=== PATIENT | male | born 1985 ===

== ENCOUNTER 2017-10-19 00:40 | Emergency (ER) | payer BC ==
[2017-10-19 00:46] VITALS: BMI 31.2
--- NOTE | 2017-10-19 01:00 | ED PDOC ---
Arrival/HPI - General Chief Complaint: Palpitations Time Seen by Provider: 10/19/17 00:55 Historian: Patient - History of Present Illness Narrative History of Present Illness (Text): 10/19/17 01:00 Dante Pascal is a 31 year old male, whose past medical history includes diabetes , who presents to the Emergency department complaining of palpitations. Patient states he woke up tonight and began experiencing palpitations with some shortness of breath. Spouse notes patient has been feeling stressed lately following the recent of a family member. Patient denies any substance abuse or alcohol abuse. Patient denies any fever, chills, chest pain, vomiting, back pain, neck pain, headache, dizziness, or any other complaints. Symptom Onset: Sudden Symptom Course: Unchanged Activities at Onset: Light Context: Home Past Medical History - Provider Review Nursing Documentation Reviewed: Yes - Psychiatric Hx Substance Use: No Family/Social History - Physician Review Nursing Documentation Reviewed: Yes Family/Social History: Unknown Family HX Smoking Status: no Hx Alcohol Use: No Hx Substance Use: No Allergies/Home Meds Allergies/Adverse Reactions: Allergies No Known Allergies Allergy (Verified 10/19/17 00:45) Review of Systems - Physician Review All systems were reviewed & negative as marked: Yes - Review of Systems Constitutional: Normal. absent: Fevers Eyes: Normal ENT: Normal Respiratory: SOB. absent: Cough Cardiovascular: Palpitations Gastrointestinal: Nausea. absent: Abdominal Pain, Diarrhea, Vomiting Genitourinary Male: Normal. absent: Dysuria, Frequency, Hematuria, Urinary Output Changes Musculoskeletal: Normal. absent: Back Pain, Neck Pain Skin: Normal. absent: Rash Neurological: Normal. absent: Headache, Dizziness Endocrine: Normal Hemo/Lymphatic: Normal Psychiatric: Normal Physical Exam Vital Signs Reviewed: Yes Temperature: Afebrile Blood Pressure: Normal Pulse: Tachycardic Respiratory Rate: Normal Appearance: Positive for: Well-Appearing, Non-Toxic, Comfortable Pain Distress: None Mental Status: Positive for: Alert and Oriented X 3 - Systems Exam Head: Present: Atraumatic, Normocephalic Pupils: Present: PERRL Extroacular Muscles: Present: EOMI Conjunctiva: Present: Normal Mouth: Present: Moist Mucous Membranes Neck: Present: Normal Range of Motion Respiratory/Chest: Present: Clear to Auscultation, Good Air Exchange. No: Respiratory Distress, Accessory Muscle Use Cardiovascular: Present: Normal S1, S2, Tachycardic. No: Murmurs Abdomen: Present: Normal Bowel Sounds. No: Tenderness, Distention, Peritoneal Signs Back: Present: Normal Inspection Upper Extremity: Present: Normal Inspection. No: Cyanosis, Edema Lower Extremity: Present: Normal Inspection. No: Edema Neurological: Present: GCS=15, CN II-XII Intact, Speech Normal Skin: Present: Warm, Dry, Normal Color. No: Rashes Psychiatric: Present: Alert, Oriented x 3, Normal Insight, Normal Concentration Medical Decision Making ED Course and Treatment: 10/19/17 01:00 Impression: 31 year old male complaining of palpitations, some shortness of breath. Plan: -- EKG -- Chest X-ray -- Labs, cardiac enzymes, D-dimer -- Reassess and disposition Progress Notes: Reviewed EKG, sinus tachycardia at [address] bpm[address] Non-specific ST/T wave changes. 10/19/17 02:29 Chest X-ray reviewed, shows: Lungs: There is no confluent infiltrate. There is mild prominence of the pulmonary vascular markings. Pleural space: No pleural effusions. No pneumothorax. Heart: No cardiomegaly. Mediastinum: Unremarkable. Bones/joints: No visualized acute osseous abnormality. IMPRESSION: 1. There is no confluent infiltrate. 2. There is mild prominence of the pulmonary vascular markings. - Lab Interpretations Lab Results: 10/19/17 01:20 10/19/17 01:20 Lab Results 10/19/17 02:10: Urine Opiates Screen Negative, Urine Methadone Screen Negative, Ur Barbiturates Screen Negative, Ur Phencyclidine Scrn Negative, Ur Amphetamines Screen Negative, U Benzodiazepines Scrn Negative, U Oth Cocaine Metabols Negative, U Cannabinoids Screen Negative 10/19/17 01:20: NT-Pro-B Natriuret Pep < 11.1 10/19/17 01:20: PT 11.9, INR 1.04, APTT 25.6, D-Dimer, Quantitative 213 10/19/17 01:20: WBC 6.3, RBC 5.01, Hgb 14.6, Hct 40.7 L, MCV 81.2, MCH 29.1, MCHC 35.9, RDW 12.9, Plt Count 186, MPV 10.0 10/19/17 01:20: Sodium 140, Potassium 3.9, Chloride 102, Carbon Dioxide 26, Anion Gap 16, BUN 24 H, Creatinine 0.8, Est GFR ( Amer) > 60, Est GFR ( Non-Af Amer) > 60, Random Glucose 207 H, Calcium 10.2, Total Bilirubin 0.9, AST 38, ALT 76 H, Alkaline Phosphatase 81, Lactate Dehydrogenase 482, Total Creatine Kinase 162, Troponin I < 0.01, Total Protein 8.0, Albumin 4.5, Globulin 3.5, Albumin/Globulin Ratio 1.3 - RAD Interpretation Radiology Orders: 10/19/17 01:06 CHEST PORTABLE [RAD] Stat - Scribe Statement The provider has reviewed the documentation as recorded by the Scribe Chastity Garvey All medical record entries made by the Scribe were at my direction and personally dictated by me. I have reviewed the chart and agree that the record accurately reflects my personal performance of the history, physical exam, medical decision making, and the department course for this patient. I have also personally directed, reviewed, and agree with the discharge instructions and disposition. Disposition/Present on Arrival - Present on Arrival Any Indicators Present on Arrival: No History of DVT/PE: No History of Uncontrolled Diabetes: No Urinary Catheter: No History of Decub. Ulcer: No History Surgical Site Infection Following: None - Disposition Have Diagnosis and Disposition been Completed?: Yes Diagnosis: Anxiety Disposition: HOME/ ROUTINE Disposition Time: 03:28 Patient Plan: Discharge Condition: GOOD Discharge Instructions (ExitCare): Anxiety, Adult (DC) Additional Instructions: Medication as prescribed/Follow up with your doctor this week Prescriptions: ALPRAZolam [Xanax] 0.25 mg PO TID PRN #12 tab PRN Reason: Anxiety Referrals: Iris Kyle MD [Primary Care Provider] - Follow up with primary Forms: [employer] (Macedonian)
[2017-10-19 01:48] LABS: HEMOGLOBIN 14.6 g/dL (14.0-18.0); MEAN CELL VOLUME 81.2 fl (80.0-105.0); MEAN CORPUSCULAR HEMOGLOBIN 29.1 pg (25.0-35.0); MEAN CORPUSCULAR HGB CONC 35.9 g/dl (31.0-37.0); RBC 5.01 10^6/uL (3.5-6.1); RED CELL DISTRIBUTION WIDTH 12.9 % (11.5-14.5); WHITE BLOOD COUNT 6.3 10^3/ul (4.5-11.0)
--- NOTE | 2017-10-19 01:50 | RAD ---
EXAM: XR Chest, 1 View EXAM DATE/TIME: 10/19/2017 1:06 AM CLINICAL HISTORY: The patient age is 31 years old and is male; Signs and symptoms; Other: Palpitations Facility exam id and description: Rad chest p chest portable TECHNIQUE: Frontal view of the chest. COMPARISON: No relevant prior studies available. FINDINGS: Lungs: There is no confluent infiltrate. There is mild prominence of the pulmonary vascular markings. Pleural space: No pleural effusions. No pneumothorax. Heart: No cardiomegaly. Mediastinum: Unremarkable. Bones/joints: No visualized acute osseous abnormality. IMPRESSION: 1. There is no confluent infiltrate. 2. There is mild prominence of the pulmonary vascular markings.
[2017-10-19 01:53] LABS: ALB/GLOB RATIO 1.3 (1.1-1.8); ALBUMIN 4.5 g/dL (3.0-4.8); ALT/SGPT 76 U/L (7-56); AST/SGOT 38 U/L (17-59); BLOOD UREA NITROGEN 24 mg/dL (7-21); CALCIUM 10.2 mg/dL (8.4-10.5); GFR AFRICAN-AMERICAN > 60; GFR NON-AFRICAN AMERICAN > 60
[2017-10-19 02:03] LABS: INR 1.04 (0.93-1.08); PROTHROMBIN TIME 11.9 SECONDS (9.4-12.5)
[2017-10-19 02:04] LABS: TROPONIN I < 0.01 ng/mL
[2017-10-19 02:05] LABS: PARTIAL THROMBOPLASTIN TIME 25.6 Seconds (25.1-36.5)
[2017-10-19 02:49] LABS: BARBITURATES, UR NEGATIVE (NEGATIVE); BENZODIAZEPINES, UR NEGATIVE (NEGATIVE); OPIATES, UR NEGATIVE (NEGATIVE); PHENCYCLIDINE, UR NEGATIVE (NEGATIVE)
[2017-10-19 03:40] VITALS: BP 127/75; PULSE 86; RESP 19; O2SAT 100
--- NOTE | 2017-10-19 11:21 | CARD ---
APPROVED REPORT EKG Measurement Heart [id number] <Conclusion> Sinus tachycardia Otherwise normal ECG
== END 2017-10-19 03:40 | disposition home or self-care (01) ==
LOC: ED 00:40
DX: F41.9 Anxiety disorder, unspecified (principal); E11.9 Type 2 diabetes mellitus without complications
CPT/HCPCS: 71045; 80053; 82550; 83615; 83880; 84484; 85027; 85378; 85610; 85730; 93005; 99284; G0480